=== PATIENT | male | born 1990 | race Caucasian/White ===

== ENCOUNTER 2018-01-28 01:27 | Inpatient (IN) | payer MEDICAID, OTHER ==
[2018-01-28] MEDS: POLYMYXIN/BACITRACIN 1L IRRIG IRR
[2018-01-28] MEDS: BACITRACIN 50000 UNITS INJ IRR
[2018-01-28] MEDS: CEFAZOLIN 1 GM/50 ML (PMX) 50 ML IVPB ×6 (02:26→20:31)
[2018-01-28] MEDS: ETOMIDATE 20 MG INJ IV (02:26)
[2018-01-28 03:06] LABS: ADD MAN DIFF? NO
[2018-01-28 03:08] LABS: WHITE BLOOD COUNT 12.4 10^3/ul (4.8-10.8)
[2018-01-28 03:08] LABS: BASOPHIL # 0.1 10^3/ul (0.0-0.1); BASOPHILS % 0.5 % (0.0-2.0); EOSINOPHILS # 0.1 10^3/ul (0.0-0.5); EOSINOPHILS % 1.1 % (0.0-7.0); HEMATOCRIT 44.5 % (42.0-52.0); HEMOGLOBIN 15.1 g/dl (14.0-18.0); LYMPHOCYTES # 2.1 10^3/ul (0.8-2.9); LYMPHOCYTES % 16.9 % (15.0-51.0); MEAN CORPUSCULAR HEMOGLOBIN 30.4 pg (29.0-33.0); MEAN CORPUSCULAR HGB CONC 33.9 g/dl (32.0-37.0); MEAN CORPUSCULAR VOLUME 89.7 fl (82.0-101.0); MEAN PLATELET VOLUME 12.1 fl (7.4-10.4); MONOCYTE # 0.9 10^3/ul (0.3-0.9); NEUTROPHIL # 9.2 10^3/ul (1.6-7.5); NEUTROPHILS % 73.9 % (39.0-77.0); PLATELET COUNT 259 10^3/UL (140-415); RED BLOOD COUNT 4.96 10^6/ul (4.70-6.10); RED CELL DISTRIBUTION WIDTH 13.4 % (11.5-14.5)
[2018-01-28 03:25] LABS: INR 0.89; PARTIAL THROMBOPLASTIN TIME 26.4 Sec (25.0-35.0); PROTIME 12.1 Sec (11.9-14.9); PT RATIO 0.9
[2018-01-28 03:26] LABS: ALANINE AMINOTRANSFERASE 49 IU/L (13-69); ALBUMIN 3.3 g/dl (3.3-4.9); ALKALINE PHOSPHATASE 59 IU/L (42-121); ANION GAP 19 (8-16); ASPARTATE AMINO TRANSFERASE 53 IU/L (15-46); BILIRUBIN,INDIRECT 0.1 mg/dl (0-1.1); BILIRUBIN,TOTAL 0.1 mg/dl (0.2-1.3); BLOOD UREA NITROGEN 12 mg/dl (7-20); CALCIUM 7.5 mg/dl (8.4-10.2); CARBON DIOXIDE 21 mmol/L (21-31); CHLORIDE 112 mmol/L (97-110); CREATININE 0.63 mg/dl (0.61-1.24); GLUCOSE 62 mg/dl (70-220); LIPASE 330 U/L (23-300); POTASSIUM 3.7 mmol/L (3.5-5.1); SODIUM 148 mmol/L (135-144); TOTAL PROTEIN 5.5 g/dl (6.1-8.1)
[2018-01-28] MEDS ORDERED: ACETAMINOPHEN 325 MG TAB PO (03:30)
[2018-01-28] MEDS ORDERED: ONDANSETRON 4 MG INJ IV ×2 (03:30→18:30)
[2018-01-28] MEDS ORDERED: NACL 0.9% 3 ML SYG IV ×2 (03:30→18:00)
[2018-01-28] MEDS: SOD CHLORIDE 0.9% 1,000 ML IV ×3 (04:00→15:51)
[2018-01-28] MEDS: CHLORDIAZEPOXIDE 25 MG CAP PO ×4 (06:00→20:36)
[2018-01-28] MEDS: HYDROmorphONE 0.5 MG/0.5 ML SYG IV ×2 (08:12→12:44)
[2018-01-28] MEDS: LORAZEPAM 2 MG INJ IV (09:40)
[2018-01-28 10:14] LABS: FOLATE 6.3 ng/ml (2.8-20.0)
[2018-01-28] MEDS: MULTIVITAMINS 10 ML, THIAMINE 100 MG, FOLIC ACID 1 MG in SOD CHLORIDE 0.9% 1,000 ML IVPB (11:31)
[2018-01-28] MEDS ORDERED: VANCOMYCIN IV PER PHARMACY XX (13:00)
[2018-01-28] MEDS ORDERED: MEPERIDINE 100 MG INJ (14:14)
[2018-01-28] MEDS ORDERED: GLYCOPYRROLATE 0.4 MG INJ ×2 (14:14→16:45)
[2018-01-28] MEDS ORDERED: SUCCINYLCHOLINE CHLORIDE 100 MG/5 ML SYG IV (14:14)
[2018-01-28] MEDS ORDERED: ROCURONIUM 50 MG INJ ×2 (14:14→16:45)
[2018-01-28] MEDS ORDERED: LIDOCAINE 2% (SDV) 5 ML INJ (14:14)
[2018-01-28] MEDS ORDERED: PROPOFOL 20 ML (14:14)
[2018-01-28] MEDS ORDERED: NEOSTIGMINE 3 MG/3 ML SYRINGE ×2 (14:14→16:45)
[2018-01-28] MEDS: VANCOMYCIN 1.5 GM in SOD CHLORIDE 0.9% 250 ML IVPB ×2 (14:30→22:51)
[2018-01-28] MEDS ORDERED: FENTAnyl 50 MCG/ML VIAL IV ×3 (18:30)
[2018-01-28] MEDS ORDERED: hydrALAzine 20 MG INJ IV (18:30)
[2018-01-28] MEDS ORDERED: LABETALOL HCL 20MG INJ IV (18:30)
[2018-01-28] MEDS ORDERED: HYDROmorphONE (0.2 MG/ML) 10ML SYG IV ×2 (18:30)
[2018-01-28] MEDS ORDERED: OXYCODONE/ACETAMINOPHEN (5/325) TAB PO ×2 (18:30)
[2018-01-28] MEDS ORDERED: MIDAZOLAM 1 MG/ML 2 ML INJ IV (18:30)
[2018-01-28] MEDS ORDERED: MEPERIDINE 25 MG INJ IV (18:30)
[2018-01-28] MEDS ORDERED: DIPHENHYDRAMINE 50 MG INJ IV (18:30)
[2018-01-28] MEDS ORDERED: EPHEDrine SULFATE 50 MG/5 ML SYG IV (18:30)
[2018-01-28] MEDS ORDERED: METOCLOPRAMIDE 10 MG INJ IV (18:30)
[2018-01-28] MEDS: HYDROmorphONE (0.2 MG/ML) 10ML SYG IV ×2 (18:31→18:56)
[2018-01-28] MEDS: morphine 2 MG INJ IV (20:30)
[2018-01-28] MEDS: D5W-0.45 NACL + KCL 20 MEQ 1,000 ML IV (20:31)
[2018-01-28] MEDS: HYDROCODONE/APAP (5/325) TAB PO (21:36)
[2018-01-28] MEDS ORDERED: VANCOMYCIN 1 GM 250 ML IVPB (22:30)
[2018-01-29] MEDS: CEFAZOLIN 1 GM/50 ML (PMX) 50 ML IVPB ×2 (02:25→10:00)
[2018-01-29] MEDS: HYDROCODONE/APAP (5/325) TAB PO ×5 (03:37→21:24)
[2018-01-29] MEDS: D5W-0.45 NACL + KCL 20 MEQ 1,000 ML IV ×3 (03:51→21:29)
[2018-01-29] MEDS: SOD CHLORIDE 0.9% 1,000 ML IV ×2 (04:21→16:51)
[2018-01-29 05:44] LABS: ADD MAN DIFF? NO
[2018-01-29] MEDS: CHLORDIAZEPOXIDE 25 MG CAP PO ×7 (05:44→23:42)
[2018-01-29] MEDS: VANCOMYCIN 1 GM 250 ML IVPB ×2 (05:44→15:25)
[2018-01-29 05:54] LABS: WHITE BLOOD COUNT 10.7 10^3/ul (4.8-10.8)
[2018-01-29 05:54] LABS: BASOPHILS % 0.3 % (0.0-2.0); HEMATOCRIT 39.8 % (42.0-52.0); HEMOGLOBIN 13.6 g/dl (14.0-18.0); LYMPHOCYTES # 0.9 10^3/ul (0.8-2.9); LYMPHOCYTES % 7.9 % (15.0-51.0); MEAN CORPUSCULAR HGB CONC 34.2 g/dl (32.0-37.0); MEAN CORPUSCULAR VOLUME 90.7 fl (82.0-101.0); MONOCYTES % 9.5 % (0.0-11.0); NEUTROPHIL # 8.8 10^3/ul (1.6-7.5); NEUTROPHILS % 81.9 % (39.0-77.0); PLATELET COUNT 180 10^3/UL (140-415); RED BLOOD COUNT 4.39 10^6/ul (4.70-6.10); RED CELL DISTRIBUTION WIDTH 13.4 % (11.5-14.5)
[2018-01-29 06:07] LABS: CHOL/HDL RATIO 1.9 RATIO; CHOLESTEROL 147 mg/dl (100-200); HDL CHOLESTEROL 74 mg/dl (30-63); LDL CHOLESTEROL,CALCULATED 63 mg/dl; TRIGLYCERIDES 52 mg/dl (0-149)
[2018-01-29 06:07] LABS: MAGNESIUM 1.6 mg/dl (1.7-2.5)
[2018-01-29 06:11] LABS: ANION GAP 13 (8-16); BLOOD UREA NITROGEN 6 mg/dl (7-20); CALCIUM 8.2 mg/dl (8.4-10.2); CARBON DIOXIDE 27 mmol/L (21-31); CHLORIDE 101 mmol/L (97-110); CREATININE 0.52 mg/dl (0.61-1.24); GLUCOSE 138 mg/dl (70-220); POTASSIUM 3.8 mmol/L (3.5-5.1); SODIUM 137 mmol/L (135-144)
[2018-01-29 06:38] LABS: THYROID STIMULATING HORMONE 0.156 MIU/L (0.465-4.680)
[2018-01-29] MEDS: ENOXAPARIN 40 MG/0.4 ML SYG SC (10:02)
[2018-01-29] MEDS: HYDROmorphONE 0.5 MG/0.5 ML SYG IV ×2 (10:53→22:56)
[2018-01-29] MEDS: MULTIVITAMINS 10 ML, THIAMINE 100 MG, FOLIC ACID 1 MG in SOD CHLORIDE 0.9% 1,000 ML IVPB (11:33)
[2018-01-29] MEDS: MAGNESIUM SULFATE 2 GM/50 ML 50 ML IVPB (11:33)
[2018-01-29 22:36] LABS: VANCOMYCIN,TROUGH 6.6 ug/ml (10.0-20.0)
[2018-01-29] MEDS: VANCOMYCIN 1.5 GM in SOD CHLORIDE 0.9% 250 ML IVPB (23:50)
[2018-01-30] MEDS: morphine 2 MG INJ IV (00:22)
[2018-01-30] MEDS: SOD CHLORIDE 0.9% 1,000 ML IV ×2 (02:21→17:02)
[2018-01-30 06:29] LABS: ANION GAP 14 (8-16); BLOOD UREA NITROGEN 5 mg/dl (7-20); CALCIUM 8.5 mg/dl (8.4-10.2); CARBON DIOXIDE 26 mmol/L (21-31); CHLORIDE 103 mmol/L (97-110); CREATININE 0.61 mg/dl (0.61-1.24); GLUCOSE 131 mg/dl (70-220); LIPASE 82 U/L (23-300); POTASSIUM 3.7 mmol/L (3.5-5.1); SODIUM 139 mmol/L (135-144)
[2018-01-30] MEDS: VANCOMYCIN 1.5 GM in SOD CHLORIDE 0.9% 250 ML IVPB ×3 (07:07→23:26)
[2018-01-30] MEDS: CHLORDIAZEPOXIDE 25 MG CAP PO ×4 (07:07→21:01)
[2018-01-30] MEDS: HYDROmorphONE 0.5 MG/0.5 ML SYG IV (07:37)
[2018-01-30 08:02] LABS: ADD MAN DIFF? NO
[2018-01-30 08:04] LABS: BASOPHILS % 0.3 % (0.0-2.0); EOSINOPHILS # 0.1 10^3/ul (0.0-0.5); EOSINOPHILS % 0.8 % (0.0-7.0); HEMOGLOBIN 12.9 g/dl (14.0-18.0); LYMPHOCYTES # 1.2 10^3/ul (0.8-2.9); LYMPHOCYTES % 13.8 % (15.0-51.0); MEAN CORPUSCULAR HEMOGLOBIN 30.5 pg (29.0-33.0); MEAN CORPUSCULAR HGB CONC 33.1 g/dl (32.0-37.0); MEAN CORPUSCULAR VOLUME 92.2 fl (82.0-101.0); MEAN PLATELET VOLUME 12.5 fl (7.4-10.4); MONOCYTE # 0.8 10^3/ul (0.3-0.9); MONOCYTES % 9.7 % (0.0-11.0); NEUTROPHIL # 6.5 10^3/ul (1.6-7.5); NEUTROPHILS % 74.9 % (39.0-77.0); PLATELET COUNT 171 10^3/UL (140-415); RED BLOOD COUNT 4.23 10^6/ul (4.70-6.10); RED CELL DISTRIBUTION WIDTH 13.4 % (11.5-14.5)
[2018-01-30 08:04] LABS: WHITE BLOOD COUNT 8.7 10^3/ul (4.8-10.8)
[2018-01-30 08:44] LABS: HEPATITIS B SURFACE ANTIGEN NEGATIVE (NEGATIVE)
[2018-01-30] MEDS: HYDROCODONE/APAP (5/325) TAB PO ×4 (08:58→21:19)
[2018-01-30] MEDS: CYANOCOBALAMIN 1000 MCG INJ IM (08:58)
[2018-01-30 09:02] LABS: HEPATITIS C VIRAL ANTIBODY NEGATIVE (NEGATIVE)
[2018-01-30] MEDS: ENOXAPARIN 40 MG/0.4 ML SYG SC (09:04)
[2018-01-30] MEDS: D5W-0.45 NACL + KCL 20 MEQ 1,000 ML IV ×2 (09:51→21:31)
[2018-01-30] MEDS: MULTIVITAMINS 10 ML, THIAMINE 100 MG, FOLIC ACID 1 MG in SOD CHLORIDE 0.9% 1,000 ML IVPB (09:56)
[2018-01-30] MEDS ORDERED: HYDROmorphONE 2 MG TAB PO (12:00)
[2018-01-30] MEDS: CEFAZOLIN 2 GM/50 ML (PMX) 50 ML IVPB (21:01)
[2018-01-30 22:53] LABS: VANCOMYCIN,TROUGH 9.3 ug/ml (10.0-20.0)
[2018-01-31] MEDS: HYDROCODONE/APAP (5/325) TAB PO ×4 (04:53→21:23)
[2018-01-31 05:03] LABS: ADD MAN DIFF? NO
[2018-01-31 05:05] LABS: WHITE BLOOD COUNT 7.3 10^3/ul (4.8-10.8)
[2018-01-31 05:05] LABS: BASOPHILS % 0.4 % (0.0-2.0); EOSINOPHILS # 0.1 10^3/ul (0.0-0.5); EOSINOPHILS % 1.2 % (0.0-7.0); HEMATOCRIT 36.8 % (42.0-52.0); HEMOGLOBIN 12.3 g/dl (14.0-18.0); LYMPHOCYTES # 1.7 10^3/ul (0.8-2.9); LYMPHOCYTES % 22.7 % (15.0-51.0); MEAN CORPUSCULAR HEMOGLOBIN 30.4 pg (29.0-33.0); MEAN CORPUSCULAR HGB CONC 33.4 g/dl (32.0-37.0); MEAN CORPUSCULAR VOLUME 91.1 fl (82.0-101.0); MEAN PLATELET VOLUME 11.5 fl (7.4-10.4); MONOCYTE # 0.7 10^3/ul (0.3-0.9); NEUTROPHIL # 4.7 10^3/ul (1.6-7.5); NEUTROPHILS % 65.1 % (39.0-77.0); PLATELET COUNT 193 10^3/UL (140-415); RED BLOOD COUNT 4.04 10^6/ul (4.70-6.10); RED CELL DISTRIBUTION WIDTH 13.2 % (11.5-14.5)
[2018-01-31] MEDS: SOD CHLORIDE 0.9% 1,000 ML IV ×2 (05:45→16:26)
[2018-01-31] MEDS: D5W-0.45 NACL + KCL 20 MEQ 1,000 ML IV ×3 (05:45→22:23)
[2018-01-31] MEDS: VANCOMYCIN 1.5 GM in SOD CHLORIDE 0.9% 250 ML IVPB (05:49)
[2018-01-31 07:32] LABS: ERYTHROCYTE SEDIMENTATION RATE 43 mm/Hr (0-15)
[2018-01-31] MEDS: MULTIVITAMINS 10 ML, THIAMINE 100 MG, FOLIC ACID 1 MG in SOD CHLORIDE 0.9% 1,000 ML IVPB (09:00)
[2018-01-31] MEDS: ENOXAPARIN 40 MG/0.4 ML SYG SC (09:38)
[2018-01-31] MEDS: VANCOMYCIN 1.75 GM in SOD CHLORIDE 0.9% 500 ML IVPB ×2 (14:31→23:00)
[2018-02-01] MEDS: HYDROCODONE/APAP (5/325) TAB PO ×4 (01:33→19:15)
[2018-02-01] MEDS: VANCOMYCIN 1.75 GM in SOD CHLORIDE 0.9% 500 ML IVPB ×3 (05:50→22:22)
[2018-02-01] MEDS: SOD CHLORIDE 0.9% 1,000 ML IV ×2 (07:21→19:51)
[2018-02-01] MEDS: ENOXAPARIN 40 MG/0.4 ML SYG SC (09:25)
[2018-02-01] MEDS: MULTIVITAMINS 10 ML, THIAMINE 100 MG, FOLIC ACID 1 MG in SOD CHLORIDE 0.9% 1,000 ML IVPB (11:20)
[2018-02-01] MEDS: D5W-0.45 NACL + KCL 20 MEQ 1,000 ML IV ×2 (11:51→21:51)
[2018-02-01 14:39] LABS: VANCOMYCIN,TROUGH 13.1 ug/ml (10.0-20.0)
[2018-02-02 01:16] LABS: ADD UMIC NO; UR ASCORBIC ACID NEGATIVE (NEGATIVE); UR BILIRUBIN (Dip) NEGATIVE (NEGATIVE); UR BLOOD (Dip) NEGATIVE (NEGATIVE); UR CLARITY CLEAR (CLEAR); UR COLOR YELLOW (YELLOW); UR GLUCOSE (Dip) NEGATIVE (NEGATIVE); UR KETONES (Dip) NEGATIVE (NEGATIVE); UR LEUKOCYTE ESTERASE (Dip) NEGATIVE Leu/ul (NEGATIVE); UR NITRITE (Dip) NEGATIVE (NEGATIVE); UR SPECIFIC GRAVITY (Dip) 1.016 (1.003-1.030); UR TOTAL PROTEIN (Dip) NEGATIVE (NEGATIVE); UR UROBILINOGEN (Dip) 1+ mg/dL (NEGATIVE)
[2018-02-02] MEDS: HYDROCODONE/APAP (5/325) TAB PO ×3 (01:27→12:19)
[2018-02-02] MEDS ORDERED: ZOLPIDEM 5 MG TAB PO (01:30)
[2018-02-02 02:04] LABS: AMPHETAMINE/METHAMPHETAMINE Negative (NEGATIVE); BARBITURATES Negative (NEGATIVE); BENZODIAZEPINES Positive (NEGATIVE); CANNABINOIDS Positive (NEGATIVE); COCAINE Negative (NEGATIVE); OPIATES Positive (NEGATIVE)
[2018-02-02] MEDS: D5W-0.45 NACL + KCL 20 MEQ 1,000 ML IV (05:06)
[2018-02-02] MEDS: VANCOMYCIN 1.75 GM in SOD CHLORIDE 0.9% 500 ML IVPB (06:23)
[2018-02-02] MEDS: SOD CHLORIDE 0.9% 1,000 ML IV (07:47)
[2018-02-02] MEDS: ENOXAPARIN 40 MG/0.4 ML SYG SC (08:33)
[2018-02-02] MEDS: MULTIVITAMINS 10 ML, THIAMINE 100 MG, FOLIC ACID 1 MG in SOD CHLORIDE 0.9% 1,000 ML IVPB (09:00)
[2018-02-04 07:41] LABS: URINE DRUG SCREEN RESULT DRUG(S) DETECTED:
== END 2018-02-02 13:30 | disposition home or self-care (01) | DRG 493 ==
LOC: E/R 01:27 → MS1 03:12
PROC: 0QSJ04Z Reposition Right Fibula with Internal Fixation Device, Open Approach (ICD-10-PCS; principal; 2018-01-28 12:30)
DX: S82.451C Displaced comminuted fracture of shaft of right fibula, initial encounter for open fracture type IIIA, IIIB, or IIIC (principal); S82.61XC Displaced fracture of lateral malleolus of right fibula, initial encounter for open fracture type IIIA, IIIB, or IIIC; E87.0 Hyperosmolality and hypernatremia; K86.0 Alcohol-induced chronic pancreatitis; F10.129 Alcohol abuse with intoxication, unspecified; E53.8 Deficiency of other specified B group vitamins; Y90.7 Blood alcohol level of 200-239 mg/100 ml; F17.210 Nicotine dependence, cigarettes, uncomplicated; Y04.2XXA Assault by strike against or bumped into by another person, initial encounter; Y93.89 Activity, other specified; Y92.511 Restaurant or cafe as the place of occurrence of the external cause; Y99.8 Other external cause status; Z59.0 Homelessness
CPT/HCPCS: 70450; 71045; 72125; 73600; 73610-RT; 74176; 80048; 80053; 80061; 80202; 80306; 80307; 81003; 82607; 82746; 83036; 83690; 83735; 84443; 85025; 85610; 85651; 85730; 86803; 87081; 87340; 94770; 96374; 96375; 97116; 97162; 97530; 99291-25